=== PATIENT | male | born 1980 ===

== ENCOUNTER 2017-12-01 17:07 | Emergency (ER) | payer SELFPAY ==
[2017-12-01 17:12] VITALS: TEMP 98
[2017-12-01] MEDS ORDERED: Sodium Chloride 0.9% 1,000 ML IV ONE (17:37)
--- NOTE | 2017-12-01 17:37 | C.PDOC ---
History Of Present Illness 36yo male, no past medical history, no past abdominal surgeries, presents to ED with complaint of right lower quadrant abdominal pain, present since this morning. Patient states the patient is confined to his right lower quadrant and is associated with nausea; he denies any traveling of pain or radiation of pain. He denies associated hematuria, dysuria, urinary frequency, and states he has not taken any medication for his symptoms. He offers no other medical complaints. Time Seen by Provider: 12/01/17 17:33 Chief Complaint (Nursing): Abdominal Pain History Per: Patient, Family History/Exam Limitations: no limitations Onset/Duration Of Symptoms: Hrs Current Symptoms Are (Timing): Still Present Location Of Pain/Discomfort: RLQ Radiation Of Pain To:: None Quality Of Discomfort: "Pain" Associated Symptoms: Nausea. denies: Vomiting, Diarrhea, Back Pain, Chest Pain , Urinary Symptoms Additional History Per: Patient Past Medical History Reviewed: Historical Data, Nursing Documentation, Vital Signs Vital Signs: Last Vital Signs Temp 98 F 12/01/17 17:10 Pulse 64 12/01/17 17:10 Resp 17 12/01/17 17:10 BP 153/115 H 12/01/17 17:10 Pulse Ox 99 12/01/17 17:41 - Medical History PMH: No Chronic Diseases Surgical History: No Surg Hx Denies: Appendectomy, Cholecystectomy Family History: States: No Known Family Hx - Social History Hx Alcohol Use: No Hx Substance Use: No - Immunization History Hx Tetanus Toxoid Vaccination: No Hx Influenza Vaccination: No Hx Pneumococcal Vaccination: No Review Of Systems Except As Marked, All Systems Reviewed And Found Negative. Constitutional: Negative for: Fever, Chills Cardiovascular: Negative for: Chest Pain Respiratory: Negative for: Shortness of Breath Gastrointestinal: Positive for: Nausea, Abdominal Pain. Negative for: Vomiting , Diarrhea Genitourinary: Negative for: Dysuria, Frequency, Hematuria Musculoskeletal: Negative for: Back Pain Physical Exam - Physical Exam Appears: Non-toxic, Other (moderate painful distress; writhing in room) Skin: Warm, Dry Head: Atraumatic, Normacephalic Eye(s): bilateral: Normal Inspection Neck: Normal ROM, Supple Chest: Symmetrical Cardiovascular: Rhythm Regular Respiratory: Normal Breath Sounds Gastrointestinal/Abdominal: Soft, No Tenderness, No Mass, No Guarding, No Rebound Back: Normal Inspection, No CVA Tenderness, No Vertebral Tenderness, No Paraspinal Tenderness Extremity: Normal ROM Neurological/Psych: Oriented x3 ED Course And Treatment - Laboratory Results Result Diagrams: 12/01/17 17:47 12/01/17 17:47 O2 Sat by Pulse Oximetry: 99 (RA) Pulse Ox Interpretation: Normal Progress - Re-Evaluation Re-evaluation Note: 12/01/17 18:31 APPEARS COMFORTABLE NAD VSS. CT REPORT D/W PT. - Data Reviewed Data Reviewed: Lab, Diagnostic imaging, Old records Disposition Counseled Patient/Family Regarding: Studies Performed, Diagnosis, Need For Followup, Rx Given - Disposition Referrals: [facility] [Outside] [facility] [Outside] Disposition: HOME/ ROUTINE Disposition Time: 18:32 Condition: IMPROVED Prescriptions: Acetaminophen/Cod NO 4 [Tylenol/Cod 300 mg-60 mg] 1 tab PO Q4 PRN #20 tab PRN Reason: Pain, Moderate (4-7) Ibuprofen [Motrin] 600 mg PO Q6 #30 tab Ondansetron [Zofran Odt] 4 mg PO TID PRN #9 odt PRN Reason: Nausea/Vomiting Tamsulosin [Flomax] 0.4 mg PO DAILY #14 cap Instructions: Renal Colic (DC) Forms: [employer] (Grenadian), Work Excuse Print Language: THAI - Clinical Impression Clinical Impression: Ureteral stone, Renal colic - Scribe Statement The provider has reviewed the documentation as recorded by the Ambika Weston Provider Attestation: All medical record entries made by the Ambika were at my direction and personally dictated by me. I have reviewed the chart and agree that the record accurately reflects my personal performance of the history, physical exam, medical decision making, and the department course for this patient. I have also personally directed, reviewed, and agree with the discharge instructions and disposition.
[2017-12-01] MEDS ORDERED: SODIUM CHLORIDE 0.9% IV STA (17:38)
[2017-12-01] MEDS ORDERED: LIDOCAINE IV STA (17:38)
[2017-12-01 17:53] LABS: BASO # 0.1 K/uL (0.0-0.2); BASO % 0.5 % (0.0-2.0); EOS # 0.3 K/uL (0.0-0.7); EOS % 2.1 % (0.0-4.0); HEMOGLOBIN 14.6 g/dL (12.0-18.0); LYMPH % 16.4 % (20.0-40.0); MEAN CELL VOLUME 85.6 fL (80.0-94.0); MEAN CORPUSCULAR HEMOGLOBIN 29.4 pg (27.0-31.0); MEAN CORPUSCULAR HGB CONC 34.3 g/dL (33.0-37.0); MEAN PLATELET VOLUME 8.7 fL (7.2-11.7); MONO # 0.4 K/uL (0.0-0.8); MONO % 2.9 % (0.0-10.0); NEUT # 9.8 K/uL (1.8-7.0); NEUT % 78.1 % (50.0-75.0); NRBC % 0.1 % (0.0-2.0); RBC 4.98 Mil/uL (4.40-5.90); RED CELL DISTRIBUTION WIDTH 13.1 % (11.5-14.5); WHITE BLOOD COUNT 12.5 K/uL (4.8-10.8)
[2017-12-01] MEDS ORDERED: Sodium Chloride 0.9% 100 ML ONE (17:55)
[2017-12-01 18:04] LABS: ALT/SGPT 72 U/L (21-72); AST/SGOT 32 U/L (17-59); BLOOD UREA NITROGEN 19 mg/dL (9-20); GFR AFRICAN-AMERICAN > 60; GFR NON-AFRICAN AMERICAN > 60; LIPASE 54 U/L (23-300)
--- NOTE | 2017-12-01 18:17 | CT ---
Date of service: 12/01/2017 PROCEDURE: CT Abdomen and Pelvis without intravenous contrast HISTORY: RLQ abd pain COMPARISON: None. TECHNIQUE: Contiguous images were obtained from the domes of the diaphragms to the upper thighs without the administration of intravenous contrast. Oral contrast was not administered. Radiation dose: Total exam DLP = 433.6 mGy-cm. This CT exam was performed using one or more of the following dose reduction techniques: Automated exposure control, adjustment of the mA and/or kV according to patient size, and/or use of iterative reconstruction technique. FINDINGS: LOWER THORAX: Unremarkable. LIVER: Unremarkable. No gross lesion or ductal dilatation. GALLBLADDER AND BILE DUCTS: Unremarkable. PANCREAS: Unremarkable. No gross lesion or ductal dilatation. SPLEEN: Unremarkable. ADRENALS: Unremarkable. No mass. KIDNEYS AND URETERS: 3 x 3 x 4 mm proximal right ureteral calculus causing mild right hydroureteronephrosis. Nonobstructive punctate right lower pole calculus. No hydronephrosis. No solid mass. VASCULATURE: Unremarkable. No aortic aneurysm. BOWEL: Unremarkable. No obstruction. No gross mural thickening. APPENDIX: Unremarkable. Normal appendix. PERITONEUM: Unremarkable. No free fluid. No free air. LYMPH NODES: Unremarkable. No enlarged lymph nodes. BLADDER: Unremarkable. REPRODUCTIVE: Unremarkable. BONES: No acute fracture. OTHER FINDINGS: None. IMPRESSION: 3 x 3 x 4 mm proximal right ureteral calculus causing mild right hydroureteronephrosis.
[2017-12-01 18:35] VITALS: RESP 18; O2SAT 98
[2017-12-01 18:43] LABS: URINE BILIRUBIN NEGATIVE (NEGATIVE); URINE BLOOD 3+ (NEGATIVE); URINE CLARITY Hazy (Clear); URINE COLOR Yellow (YELLOW); URINE GLUCOSE (UA) NORMAL (Normal); URINE LEUKOCYTE ESTERASE NEG Leu/uL (Negative); URINE PROTEIN 2+ mg/dL (NEGATIVE); URINE UROBILINOGEN NORMAL mg/dL (0.2-1.0)
[2017-12-01 19:04] VITALS: BP 126/73; PULSE 76
== END 2017-12-01 19:04 | disposition home or self-care (01) ==
LOC: C.ER 17:07
DX: N13.2 Hydronephrosis with renal and ureteral calculous obstruction (principal)
CPT/HCPCS: 74176; 80053; 81001; 83690; 85025; 96374; 96375; 99284; J1885; J2001; J2405; J7030